=== PATIENT | female | born 1960 | race African-American/Black ===

== ENCOUNTER 2017-11-02 17:51 | Emergency (ER) | payer OTHER ==
[~2017-11-02] VITALS: Ht 175.3 cm; Wt 81.2 kg
[2017-11-02 17:56] VITALS: BP 179/110
--- NOTE | 2017-11-02 18:08 | NUR ---
57F BIBA FROM FRIEND'S HOUSE C/O BL LOWER BACK PAIN X TODAY; PT STATES NO RECENT TRAUMA OR INJURY TO SITE AT THIS TIME. HX: HTN, STROKE, HYPERLIPIDEMIA. RX; PT STATES " I DIDN'T BRING THEM WITH ME"DENIES N/V/D; AAOX4 WITH EVEN AND STEADY GAIT; LUNGS CLEAR BL; PT DENIES ANY FEVER, CP, SOB, OR COUGH AT THIS TIME; PATIENT STATES PAIN OF 10/10 AT THIS TIME; PATIENT POSITIONED FOR COMFORT; HOB ELEVATED; BEDRAILS UP X2; BED DOWN. ER MD MADE AWARE OF PT STATUS.
--- NOTE | 2017-11-02 18:50 | NUR ---
Patient being evaluated by DR MCKEON at bedside.
--- NOTE | 2017-11-02 19:08 | NUR ---
report given to SOSA CONNOR. Transfer of care at this time.
--- NOTE | 2017-11-02 19:19 | NUR ---
pt resting in bed, DR baez at bedside.
[2017-11-02] MEDS ORDERED: HYDROcodone/APAP 5/325 MG 1 TAB TAB PO ONE (20:05)
[2017-11-02 20:16] LABS: BASOPHILS # (AUTO) 0.1 K/uL (0.00-0.22); BASOPHILS % (AUTO) 0.5 % (0.0-2.0); EOSINOPHILS % (AUTO) 0.4 % (0.0-4.0); HEMATOCRIT 40.9 % (36-48); HEMOGLOBIN 13.3 g/dL (12.0-16.0); LYMPHOCYTES # (AUTO) 2.6 K/uL (2.5-16.5); LYMPHOCYTES % (AUTO) 23.2 % (20.5-51.1); MEAN CORPUSCULAR HEMOGLOBIN 26 pg (27-31); MEAN CORPUSCULAR HGB CONC 33 g/dL (33-37); MEAN CORPUSCULAR VOLUME 79 fL (80-94); MONOCYTES # (AUTO) 0.6 K/uL (0.8-1.0); MONOCYTES % (AUTO) 4.9 % (1.7-9.3); NEUTROPHILS # (AUTO) 8.1 K/uL (1.8-7.7); PLATELET COUNT (AUTO) 290 K/uL (140-450); RED BLOOD CELL COUNT(AUTO) 5.15 MIL/uL (4.20-5.40); RED CELL DISTRIBUTION WIDTH 14.8 % (11.6-13.7); WHITE BLOOD COUNT (AUTO) 11.4 K/uL (4.8-10.8)
[2017-11-02 20:24] LABS: CARBON DIOXIDE 24.6 mmol/L (21-32); CREATININE 1.3 mg/dL (0.6-1.3); POTASSIUM 3.6 mmol/L (3.5-5.1)
[2017-11-02 20:40] VITALS: BP 145/84
--- NOTE | 2017-11-02 20:40 | NUR ---
Patient discharged with v/s stable. Written and verbal after care instructions given and explained. Patient verbalized understanding. Ambulatory with steady gait. All questions addressed prior to discharge. Advised to follow up with PMD THIS WEEK.
== END 2017-11-02 20:40 | disposition home or self-care (01) ==
LOC: MED 17:51
DX: G89.29 Other chronic pain (principal); M54.5 Low back pain; R55 Syncope and collapse; E78.00 Pure hypercholesterolemia, unspecified; I10 Essential (primary) hypertension; Z86.73 Personal history of transient ischemic attack (TIA), and cerebral infarction without residual deficits; Z90.710 Acquired absence of both cervix and uterus; Z88.0 Allergy status to penicillin; Z87.891 Personal history of nicotine dependence
CPT/HCPCS: 36415; 80048; 84484; 85025; 93005; 99285